=== PATIENT | male | born 1990 | race Caucasian/White ===

== ENCOUNTER 2016-05-08 11:58 | Emergency (ER) | payer BC ==
--- NOTE | ~2016-05-08 | CR127 ---
[facility]. [facility] A Service of [facility] & [facility] RADIOLOGY TEXT RESULTS PATIENT: RHONDA MAZA ALLEN LOCATION: SED : [birth year] UNIT #: [id number] AGE: [address]: Verna Blount APRN SEX: M ORDER DR: [id number] [place] [id number] MR#: [id number] Acc #: [id number] NAME: RHONDA MAZA : 1990 SEX: M STUDY DATE/TIME: 05/08/2016 11:44 UNIT: SED ROOM: STUDY DESCRIPTION: CR Foot Complete Min 3 View Rt Attending Physician: Verna Blount A.P.R.N. Ordering Physician: Verna Blount A.P.R.N. Primary Care Physician: Levar Landaverde M.D. MEDICAL IMAGING REPORT This report is preliminary unless electronic signature is present. EXAM Right foot 3 views HISTORY Lateral pain ankle with swelling since injury last night, twisted while playing basketball. COMMENT 3 views of the right foot are reviewed. No acute fracture, dislocation or radiopaque foreign body. IMPRESSION Negative plain film assessment right foot. Dictated by... Ijeoma Drake M.D. THIS IS AN ELECTRONICALLY VERIFIED REPORT Ijeoma Drake M.D. at 05/09/2016 6:20 AM DANDY/lemuel TD: 05/09/2016 02:56 JOB #: [id number] MEDICAL IMAGING REPORT
--- NOTE | ~2016-05-08 | CR21 ---
[facility] A Service of [facility] & [facility] RADIOLOGY TEXT RESULTS PATIENT: RHONDA MAZA ALLEN LOCATION: SED : [birth year] UNIT #: [id number] AGE: [address]: Verna Blount APRN SEX: M ORDER DR: [id number] [place] [id number] MR#: [id number] Acc #: [id number] NAME: RHONDA MAZA : 1990 SEX: M STUDY DATE/TIME: 05/08/2016 11:42 UNIT: SED ROOM: STUDY DESCRIPTION: CR Ankle Min 3 Views Rt Attending Physician: Verna Blount A.P.R.N. Ordering Physician: Verna Blount A.P.R.N. Primary Care Physician: Levar Landaverde M.D. MEDICAL IMAGING REPORT This report is preliminary unless electronic signature is present. EXAM Right foot and ankle HISTORY Pain laterally ankle with swelling starting last evening, twisted while playing basketball. COMMENT 3 views of the right ankle are reviewed. No previous. There is considerable lateral soft tissue swelling but no acute fracture is appreciated. Ankle mortise is anatomic. IMPRESSION Particular lateral soft tissue swelling but no acute fracture, dislocation or radiopaque foreign body right ankle. Dictated by... Ijeoma Drake M.D. THIS IS AN ELECTRONICALLY VERIFIED REPORT Ijeoma Drake M.D. at 05/09/2016 4:12 PM DANDY/lemuel TD: 05/09/2016 01:46 JOB #: [id number] MEDICAL IMAGING REPORT
[~2016-05-08 11:58] MED LIST: ALBUTEROL17 G1 INH; FAMOTIDINE PO; FLEXERIL10 MG PO; NO MEDICATIONS; PREDNISONE PO; VOLTAREN50 MG PO; ZITHROMAX PO; ZOFRAN ODT4 MG PO
== END 2016-05-08 12:55 | disposition home or self-care (01) ==
LOC: SED 11:58
DX: S93.421A Sprain of deltoid ligament of right ankle, initial encounter (principal); Z88.0 Allergy status to penicillin; X50.9XXA Other and unspecified overexertion or strenuous movements or postures, initial encounter; Y93.67 Activity, basketball
CPT/HCPCS: 29515; 73610; 73630; 99283